=== PATIENT | female | born 1975 | race Caucasian/White ===

== ENCOUNTER 2016-06-07 18:52 | Emergency (ER) | payer OTHER ==
[~2016-06-07] VITALS: Ht 149.9 cm; Wt 104.1 kg
[~2016-06-07 18:52] MED LIST: ACID REFLUX PO; ADDERALL XR 2020 MG PO; ADDERALL10 M1 PO; ADDERALL20 MG PO; ALBUTEROL; AMBIEN5 MG PO; AMLODIPINE BESY10 MG PO; ASPIRIN81 M2 PO; CALAN PO; CEPHALEXIN500 MG PO; CIPROFLOXACIN500 M1 PO; CLOBETASOL PRO118 ML TP; CLOBEX118 ML TP; CLONAZEPAM0.5 MG PO; CLONIDINE HCL0.1 MG PO; CLONIDINE1 EACH TD; DAILY VALUE1 EACH PO; DAILY VITE1 EAC1 PO; DIAMOX250 MG PO; DICYCLOMINE HCL10 MG PO; DIPHENOXYLATE/1 EACH PO; DUONEB 2.5-0.5 M3 ML IH; FIORICET 50-301 EACH PO; FIORICET,ESG1 TABLET PO; FLONASE16 G1 BOTH NARES; FLOVENT; FLOVENT 11120 INHALA IH; FOLIC ACID1 MG PO; FUROSEMIDE20 MG PO; GABAPENTIN100 MG PO; GABAPENTIN300 MG PO; HCTZ; HYDROCORTISON28.4 GM TP; IMITREX; KENALOG,ARISTOC80 GM TP; KEPPRA250 MG PO; KEPPRA500 MG PO; LAMICTAL; LAMICTAL200 MG PO; LAMOTRIGINE100 MG PO; LAMOTRIGINE150 MG PO; LASIX20 MG PO; LASIX40 MG PO; LEVAQUIN750 MG PO; LEXAPRO10 MG PO; LEXAPRO20 MG PO; LIDODERM 5% P1 PATCH TD; LISINOPRIL40 MG PO; LO-DOSE ASPIRIN81 M1 PO; LOPRESSOR50 MG PO; METAMUCIL PLUS1 EACH PO; METHADONE5 MG PO; METOPROLOL SUC100 MG PO; METOPROLOL TAR100 MG PO; METRO CREAM 0.745 GM TP; METRONIDAZOLE45 G1 TP; MORPHINE SULFAT15 M1 PO; MOTRIN800 MG PO; MULTI-DAY PLUS1 EACH PO; NAPROSYN500 MG PO; NAPROXEN500 MG PO; NEURONTIN300 MG PO; OMEPRAZOLE20 MG PO; PAXIL PO; PERCOCET 7.51 TABLET PO; POTASSIUM CHLORIDE; PROAIR HFA8.5 GM IH; PROBIOTIC1 EAC1 PO; PROMETHAZINE HC25 M1 PO; PROMETHAZINE12.5 M1 PO; PROVENTIL,2.5 MG/3 M IH; QUESTRAN PACKET4 GM PO; RANITIDINE HCL150 MG PO; SOLU-MEDRO40 MG/1 ML IV; SYMBICORT60 INHALAT IH; TESSALON200 MG PO; TIZANIDINE HCL4 M1 PO; TIZANIDINE HCL4 MG PO; TOPAMAX; TRIAMCINOLONE A15 G2 TP; TRIAMCINOLONE A15 GM TP; VENTOLIN HFA18 GM IH; VERAPAMIL HCL240 MG PO; VERELAN 240 MG240 MG PO; VITAMIN B-12500 MC3 PO; VITAMIN D31000 UNIT PO; VOLTAREN75 MG PO; Vitamin B-12 PO; WOMEN'S DAILY1 EAC1 PO; ZESTORETIC 20-1 EAC1 PO; ZOLOFT50 MG PO
[2016-06-07 19:50] LABS: HEMATOCRIT 38.7 % (36.0-46.0); MCH 28.1 PG (29.0-34.0); MCHC 31.5 G/DL (30.0-36.0); MCV 89.2 FL (83-99); MEAN PLAT.VOLUME 10.9 uM^3 (9.5-12.4); PLATELET COUNT 240 K/uL (156-360); RBC DIS.WIDTH-CV 14.3 % (11.8-14.6); RBC DIS.WIDTH-SD 45.4 % (39-53); RED BLOOD COUNT 4.34 M/uL (3.80-5.20); WHITE BLOOD COUNT 7.8 K/uL (4.1-10.2)
[2016-06-07 20:06] LABS: CHLORIDE 109 mEq/L (99-109); POTASSIUM 3.6 mEq/L (3.7-5.4); SODIUM 144 mEq/L (136-147)
[2016-06-07 20:07] LABS: GLUCOSE 95 mg/dL (70-99)
[2016-06-07 20:09] LABS: ANION GAP 8 MEQ/L (2-14)
[2016-06-07 20:11] LABS: GFR ESTIMATE (CALCULATED) > 59 mL/min/
[2016-06-07 20:12] LABS: TROP-I INTERPRETATION NEGATIVE; TROPONIN-I < 0.01 ng/mL (0.0-0.30); UREA NITROGEN (BUN) 15 mg/dL (9-23)
[2016-06-08 02:10] LABS: TROP-I INTERPRETATION NEGATIVE; TROPONIN-I < 0.01 ng/mL (0.0-0.30)
[2016-06-08 03:23] LABS: D-DIMER ELISA 0.78 mg/L FEU (< 0.57)
[2016-06-08] MEDS ORDERED: NEXIUM40 MG PO (05:54)
[2016-06-08] MEDS ORDERED: KRISTALOSE10 GM PO (06:04)
[2016-06-08 08:01] LABS: TROP-I INTERPRETATION NEGATIVE; TROPONIN-I < 0.01 ng/mL (0.0-0.30)
[2016-06-08 08:59] VITALS: BP 125/78
== END 2016-06-08 09:03 | disposition home or self-care (01) ==
LOC: EME 18:52
PROVIDERS: Emergency Medicine
DX: R07.89 Other chest pain (principal); J45.909 Unspecified asthma, uncomplicated; I50.9 Heart failure, unspecified; E11.9 Type 2 diabetes mellitus without complications; I25.2 Old myocardial infarction; R56.9 Unspecified convulsions; Z86.718 Personal history of other venous thrombosis and embolism; Z98.61 Coronary angioplasty status; Z79.82 Long term (current) use of aspirin
CPT/HCPCS: 71020; 71275; 80048; 84484; 85027; 85379; 93005; 99281; 99285

== ENCOUNTER 2017-01-20 14:02 | Emergency (ER) | payer OTHER ==
[~2017-01-20] VITALS: Ht 149.9 cm; Wt 93.3 kg
[~2017-01-20 14:02] MED LIST changes: +KRISTALOSE10 GM PO; +NEXIUM40 MG PO
[2017-01-20 15:23] LABS: HEMATOCRIT 33.5 % (36.0-46.0); MCH 25.1 PG (29.0-34.0); MCHC 30.7 G/DL (30.0-36.0); MCV 81.7 FL (83-99); MEAN PLAT.VOLUME 9.8 uM^3 (9.5-12.4); PLATELET COUNT 243 K/uL (156-360); RBC DIS.WIDTH-CV 14.8 % (11.8-14.6); RBC DIS.WIDTH-SD 43.9 % (39-53); WHITE BLOOD COUNT 6.5 K/uL (4.1-10.2)
[2017-01-20 15:34] LABS: CHLORIDE 111 mEq/L (99-109); POTASSIUM 3.9 mEq/L (3.7-5.4); SODIUM 140 mEq/L (136-147)
[2017-01-20 15:36] LABS: GLUCOSE 96 mg/dL (70-99)
[2017-01-20 15:37] LABS: ANION GAP 4 MEQ/L (2-14)
[2017-01-20 15:40] LABS: GFR ESTIMATE (CALCULATED) > 59 mL/min/
[2017-01-20 15:41] LABS: UREA NITROGEN (BUN) 18 mg/dL (9-23)
[2017-01-20 15:43] LABS: TROP-I INTERPRETATION NEGATIVE; TROPONIN-I < 0.01 ng/mL (0.0-0.30)
[2017-01-20 15:51] LABS: QUANTITATIVE HCG < 4.0 MIU/ML
[2017-01-20 17:15] VITALS: BP 160/78
== END 2017-01-20 17:34 | disposition home or self-care (01) ==
LOC: EME 14:02
PROVIDERS: Emergency Medicine
DX: R55 Syncope and collapse (principal); I25.2 Old myocardial infarction; J45.909 Unspecified asthma, uncomplicated; E11.9 Type 2 diabetes mellitus without complications; I50.9 Heart failure, unspecified; R56.9 Unspecified convulsions; Z98.61 Coronary angioplasty status; Z79.82 Long term (current) use of aspirin
CPT/HCPCS: 71010; 80048; 84484; 84702; 85027; 93005; 99281; 99285; J7030

== ENCOUNTER → 2017-05-24 | Outpatient (CLI) | payer OTHER ==
[~2017-05-24] VITALS: Ht 149.9 cm; Wt 92.5 kg
[~2017-05-24] MED LIST changes: +ALBUTEROL2.5 MG/3 M IH; +AMLODIPINE BESYL5 MG PO; +AMOX TR-K CLV1 EAC4 PO; +ESCITALOPRAM OX10 MG PO; +INCRUSE ELLI62.5 MCG IH; +KEPPRA750 MG PO; +LACTULOSE10 GM/151 PO; +METOPROLOL SUCC50 MG PO; +NYSTOP60 GM TP; +ONDANSETRON HCL4 MG PO; +PANTOPRAZOLE SO40 MG PO; +PHENERGAN DM SYR1 ML PO; +SUMATRIPTAN SUC50 MG PO; +TOPIRAMATE25 MG PO; +VALACYCLOVIR1000 MG PO; +VITAMIN D32000 UNI1 PO
[2017-05-24 16:07] VITALS: BP 125/78
[2017-05-24 16:31] LABS: HEMATOCRIT 32.5 % (36.0-46.0); MCH 23.9 PG (29.0-34.0); MCHC 29.8 G/DL (30.0-36.0); PLATELET COUNT 266 K/uL (156-360); RBC DIS.WIDTH-CV 15.7 % (11.8-14.6); RBC DIS.WIDTH-SD 44.3 % (39-53); RED BLOOD COUNT 4.06 M/uL (3.80-5.20); WHITE BLOOD COUNT 5.8 K/uL (4.1-10.2)
[2017-05-24 16:49] LABS: IRON 19 MCG/DL (35-150)
[2017-05-24 17:25] VITALS: BP 169/87
== END | disposition home or self-care (01) ==
LOC: IVINF 15:53
PROVIDERS: Physician Assistant Medical
DX: D64.9 Anemia, unspecified (principal)
CPT/HCPCS: 83540; 84466; 85027; 96365; J1756; J7050

== ENCOUNTER 2018-01-10 12:06 | Emergency (ER) | payer OTHER ==
[~2018-01-10] VITALS: Ht 149.9 cm; Wt 82.5 kg
[2018-01-10 13:56] LABS: APPEARANCE CLEAR ((CLEAR)); BILIRUBIN NEGATIVE; BLOOD SMALL; COLOR STRAW ((YELLOW)); GLUCOSE (STRIP) NEGATIVE; KETONES NEGATIVE; LEUKOCYTES NEGATIVE; NITRITE NEGATIVE; PROTEIN (STRIP) NEGATIVE; SPECIFIC GRAVITY 1.009 (1.000-1.030); UROBILINOGEN 0.2 MG/DL (0.2-1.0)
[2018-01-10 13:56] LABS: BASOPHIL (%) 0.9 % (0-1); EOSINOPHIL (%) 2.6 % (0-5); EOSINOPHIL COUNT 0.1 K/uL (0-0.3); HEMATOCRIT 34.7 % (36.0-46.0); HEMOGLOBIN 10.4 G/DL (11.9-15.5); IMMATURE GRANULOCYTE (%) 0.2 % (0.0-0.7); LYMPHOCYTE (%) 36.1 % (15-42); LYMPHOCYTE COUNT 1.7 K/uL (1.0-2.8); MCH 23.5 PG (29.0-34.0); MCV 78.5 FL (83-99); MONOCYTE (%) 6.4 % (3-12); MONOCYTE COUNT 0.3 K/uL (0-0.8); NEUTROPHIL (%) 53.8 % (45-76); NEUTROPHIL COUNT 2.5 K/uL (1.8-6.4); PLATELET COUNT 277 K/uL (156-360); RBC DIS.WIDTH-CV 15.6 % (11.8-14.6); RBC DIS.WIDTH-SD 43.9 % (39-53); RED BLOOD COUNT 4.42 M/uL (3.80-5.20); WHITE BLOOD COUNT 4.7 K/uL (4.1-10.2)
[2018-01-10 14:05] LABS: ALBUMIN 4.1 g/dL (3.2-4.8); CHLORIDE 107 mEq/L (99-109); SODIUM 140 mEq/L (136-147)
[2018-01-10 14:07] LABS: GLUCOSE 88 mg/dL (70-99); TOTAL PROTEIN 6.9 g/dL (6.4-8.3)
[2018-01-10 14:09] LABS: TOTAL BILIRUBIN 0.8 mg/dL (0.0-1.0)
[2018-01-10 14:10] LABS: SERUM ETHYL ALCOHOL < 10 mg/dL
[2018-01-10 14:11] LABS: ALKALINE PHOSPHATASE 66 IU/L (3-129); CREATININE 1.1 mg/dL (0.6-1.3); GFR ESTIMATE (CALCULATED) 58 mL/min/
[2018-01-10 14:12] LABS: AST (GOT) 17 IU/L (2-34); DIRECT BILIRUBIN 0.3 mg/dL (0.0-0.3)
[2018-01-10 14:13] LABS: UREA NITROGEN (BUN) 17 mg/dL (9-23)
[2018-01-10 14:14] LABS: SALICYLATE < 5.0 MG/DL (15-30)
[2018-01-10 14:15] LABS: ACETAMINOPHEN (TYLENOL) < 10 mcg/mL (10-30); ALT (GPT) 13 IU/L (3-49); LIPASE 15 U/L (1.0-51.0)
[2018-01-10 14:16] LABS: TROP-I INTERPRETATION NEGATIVE; TROPONIN-I < 0.01 ng/mL (0.0-0.30)
[2018-01-10 14:21] LABS: QUANTITATIVE HCG < 4.0 MIU/ML
[2018-01-10 14:38] LABS: BACTERIA NONE SEEN /HPF; EPITHELIAL CELLS RARE /HPF; MUCUS NONE SEEN /LPF; RED BLOOD CELLS RARE /HPF (0-5); UCUL ADDED? NO; WHITE BLOOD CELLS NONE SEEN /HPF (0-5)
[2018-01-10 15:49] LABS: AMPHETAMINE PRESUMPTIVE POSITIVE (500 ng/mL); BARBITURATES NEGATIVE (200 ng/mL); BENZODIAZEPINES NEGATIVE (150 ng/mL); BUPRENORPHINE NEGATIVE (10 ng/mL); COCAINE NEGATIVE (150 ng/mL); METHADONE NEGATIVE (200 ng/mL); METHAMPHETAMINE NEGATIVE (500 ng/mL); OPIATES (MORPHINE) PRESUMPTIVE POSITIVE (100 ng/mL); OXYCODONE PRESUMPTIVE POSITIVE (100 ng/mL); PHENCYCLIDINE NEGATIVE (25 ng/mL); PROPOXYPHENE NEGATIVE (300 ng/mL); THC CANNABINOIDS NEGATIVE (50 ng/mL); TRICYCLIC ANTIDEPRESSANTS NEGATIVE (300 ng/mL)
[2018-01-10 18:44] VITALS: BP 152/78
== END 2018-01-10 18:47 | disposition home or self-care (01) ==
LOC: EME 12:06
PROVIDERS: Emergency Medicine
DX: T50.991A Poisoning by other drugs, medicaments and biological substances, accidental (unintentional), initial encounter (principal); R41.82 Altered mental status, unspecified; R53.83 Other fatigue; I11.0 Hypertensive heart disease with heart failure; I50.9 Heart failure, unspecified; J45.909 Unspecified asthma, uncomplicated; E11.9 Type 2 diabetes mellitus without complications; F41.9 Anxiety disorder, unspecified; F32.9 Major depressive disorder, single episode, unspecified; R56.9 Unspecified convulsions; I25.2 Old myocardial infarction; Z95.5 Presence of coronary angioplasty implant and graft; Z90.49 Acquired absence of other specified parts of digestive tract; Z79.82 Long term (current) use of aspirin; Z88.5 Allergy status to narcotic agent
CPT/HCPCS: 70450; 80048; 80076; 81003; 83605; 83690; 84484; 84702; 84999; 85025; 93005; 99281; 99284; G0480; J7030

== ENCOUNTER 2018-01-16 18:56 | Emergency (ER) | payer OTHER ==
[~2018-01-16] VITALS: Ht 149.9 cm; Wt 81.9 kg
[2018-01-16 19:35] LABS: HEMATOCRIT 35.9 % (36.0-46.0); HEMOGLOBIN 10.8 G/DL (11.9-15.5); MCH 23.7 PG (29.0-34.0); MCHC 30.1 G/DL (30.0-36.0); MCV 78.7 FL (83-99); PLATELET COUNT 254 K/uL (156-360); RBC DIS.WIDTH-CV 16.1 % (11.8-14.6); RBC DIS.WIDTH-SD 45.7 % (39-53); RED BLOOD COUNT 4.56 M/uL (3.80-5.20); WHITE BLOOD COUNT 5.9 K/uL (4.1-10.2)
[2018-01-16 19:52] LABS: CHLORIDE 116 mEq/L (99-109)
[2018-01-16 19:53] LABS: POTASSIUM 4.1 mEq/L (3.7-5.4); SODIUM 144 mEq/L (136-147)
[2018-01-16 19:54] LABS: GLUCOSE 111 mg/dL (70-99)
[2018-01-16 19:57] LABS: TROP-I INTERPRETATION NEGATIVE; TROPONIN-I < 0.01 ng/mL (0.0-0.30)
[2018-01-16 19:58] LABS: CREATININE 0.9 mg/dL (0.6-1.3); GFR ESTIMATE (CALCULATED) > 59 mL/min/
[2018-01-16 20:04] LABS: UREA NITROGEN (BUN) 31 mg/dL (9-23)
[2018-01-16 20:50] LABS: APPEARANCE CLOUDY ((CLEAR)); BILIRUBIN NEGATIVE; BLOOD NEGATIVE; COLOR YELLOW ((YELLOW)); GLUCOSE (STRIP) NEGATIVE; KETONES NEGATIVE; LEUKOCYTES NEGATIVE; NITRITE NEGATIVE; PROTEIN (STRIP) 30; SPECIFIC GRAVITY 1.027 (1.000-1.030)
[2018-01-16 21:02] LABS: AMPHETAMINE NEGATIVE (500 ng/mL); BARBITURATES NEGATIVE (200 ng/mL); BENZODIAZEPINES NEGATIVE (150 ng/mL); BUPRENORPHINE NEGATIVE (10 ng/mL); COCAINE NEGATIVE (150 ng/mL); METHADONE NEGATIVE (200 ng/mL); METHAMPHETAMINE NEGATIVE (500 ng/mL); OPIATES (MORPHINE) NEGATIVE (100 ng/mL); OXYCODONE NEGATIVE (100 ng/mL); PHENCYCLIDINE NEGATIVE (25 ng/mL); PROPOXYPHENE NEGATIVE (300 ng/mL); THC CANNABINOIDS NEGATIVE (50 ng/mL); TRICYCLIC ANTIDEPRESSANTS NEGATIVE (300 ng/mL)
[2018-01-16 21:24] LABS: BACTERIA 1+ /HPF; EPITHELIAL CELLS 3+ /HPF; MUCUS 1+ /LPF; UCUL ADDED? NO; WHITE BLOOD CELLS 0-5 /HPF (0-5)
[2018-01-16 22:52] LABS: TROP-I INTERPRETATION NEGATIVE; TROPONIN-I < 0.01 ng/mL (0.0-0.30)
[2018-01-16 23:21] VITALS: BP 195/94
== END 2018-01-16 23:22 | disposition home or self-care (01) ==
LOC: EME 18:56
PROVIDERS: Nurse Practitioner Family
DX: R11.2 Nausea with vomiting, unspecified (principal); R19.7 Diarrhea, unspecified; R42 Dizziness and giddiness; R07.9 Chest pain, unspecified; I25.2 Old myocardial infarction; J45.909 Unspecified asthma, uncomplicated; I11.0 Hypertensive heart disease with heart failure; I50.9 Heart failure, unspecified; F32.9 Major depressive disorder, single episode, unspecified; E11.9 Type 2 diabetes mellitus without complications; Z95.5 Presence of coronary angioplasty implant and graft; Z79.82 Long term (current) use of aspirin; Z88.5 Allergy status to narcotic agent; R56.9 Unspecified convulsions
CPT/HCPCS: 71046; 80048; 81003; 84484; 85027; 93005; 99281; 99284